=== PATIENT | male | born 1990 | race Caucasian/White ===

== ENCOUNTER 2022-08-24 15:52 | Emergency (ER) | payer OTHER, SELFPAY ==
[2022-08-24 15:58] VITALS: BP 149/61; PULSE 91; RESP 18; TEMP 36.2; O2SAT 99
--- NOTE | 2022-08-24 16:09 | ED.LOWEXIN ---
HPI - Extremity Injury (Lower) General Stated Complaint: Skin Sore Source: patient and RN notes reviewed Limitations: no limitations History of Present Illness HPI Narrative: Patient is a 32-year-old male who presents to the [facility] bilateral foot pain. Patient states that he feels as if he has a sore on the lateral aspect of the dorsal surface of bilateral feet. There is no redness or swelling. Patient states that he has to wear steel-toed boots at work on a daily basis, which may have been contributing to his pain. Sensation is intact and he denies numbness. Pulses are present. He denies known injury. He has full range of motion of bilateral feet. Related Data Allergies Allergy/AdvReac Type Severity Reaction Status Date / Time No Known Allergies Allergy Unknown Unverified 08/24/22 15:54 Review of Systems Review of Systems: CONSTITUTIONAL: Denies fever, chills, or sweats. EYES: Denies visual changes, redness, or discharge. ENT: Denies otalgia and sore throat CARDIOVASCULAR: Denies chest pain, palpitations, or edema. RESPIRATORY: Denies cough or dyspnea. GASTROINTESTINAL: Denies abdominal pain, nausea, vomiting, or diarrhea. GENITOURINARY: Denies dysuria or hematuria. SKIN: Denies rash or itching. MUSCULOSKELETAL: Denies back pain, but reports bilateral lateral foot pain. NEUROLOGIC: Denies headache, numbness, or weakness. Pertinent positives per HPI. PMFSH Comments At the time of my signature, I reviewed and agree with the nursing past medical, surgical, social, and family history. There is no relevant family history pertinent to the patient complaint. Exam Narrative: GENERAL: This is a well-nourished, well-developed patient, in no apparent distress. HEAD: normocephalic, atraumatic. EYES: Sclera clear/white. Vision is grossly intact. EARS: External ears normal, auditory canals clear and without drainage. Hearing grossly intact. NOSE: External nose normal with no obvious nasal discharge, nares without redness, no rhinorrhea. THROAT: Mucous membranes moist, posterior pharynx clear. NECK: Neck supple, non-tender without lymphadenopathy, masses or thyromegaly. CARDIOVASCULAR: Regular rate and rhythm without murmurs, gallops, or rubs. RESPIRATORY: Clear to auscultation. Breath sounds equal bilaterally. No wheezes, rales, or rhonchi. GASTROINTESTINAL: Abdomen soft, non-tender, nondistended. Bowel sounds are active. No hepato-splenomegaly, or palpable masses. No guarding. SKIN: warm, intact with no suspicious lesions or rash, good texture and turgor. NEURO: awake, alert, and oriented to person, place and time. There were no obvious focal neurologic abnormalities. EXTREMITIES: No clubbing, cyanosis, or edema. Tenderness to the lateral aspect of bilateral feet. Full range of motion intact. Sensation intact. Pulses present. No signs of injury or swelling. BACK: Nontender without deformity or crepitance. No flank tenderness. Course Course Level of Care: Express Care Visit Vital Signs Vital signs: Vital Signs Temperature 97.2 F L 08/24/22 15:58 Pulse Rate 91 08/24/22 15:58 Respiratory Rate 18 08/24/22 15:58 Blood Pressure 149/61 H 08/24/22 15:58 Pulse Oximetry 99 08/24/22 15:58 Oxygen Delivery Room Air 08/24/22 15:58 Temperature 97.2 F L 08/24/22 15:58 Pulse Rate 91 08/24/22 15:58 Respiratory Rate 18 08/24/22 15:58 Blood Pressure 149/61 H 08/24/22 15:58 Pulse Oximetry 99 08/24/22 15:58 Oxygen Delivery Room Air 08/24/22 15:58 Reviewed MDM - Extremity Injury (Lower) MDM Narrative Medical decision making narrative: Use the RICE method at home. May take ibuprofen and/or Tylenol if needed. If symptoms persist in 1 week after conservative treatment, follow-up with specialist. Differential Diagnosis Differential diagnosis: Likely fracture of toe and other (foot contusion, foot fracture) Critical Care Time Critical Care Time Critical Care Time: No Discharge Plan Dis
[2022-08-24 16:14] VITALS: BP 149/61; PULSE 91; RESP 18; TEMP 36.2; O2SAT 99
== END 2022-08-24 16:15 | disposition home or self-care (01) ==
PROVIDERS: Emergency Provider Nurse Practitioner; PCP Internal Medicine
DX: M79.672 Pain in left foot (principal); M79.671 Pain in right foot
CPT/HCPCS: 99212; G0463

== ENCOUNTER 2023-09-20 10:50 | Emergency (ER) | payer OTHER, SELFPAY ==
--- NOTE | ~2023-09-20 | CT_ITS ---
EXAMINATION: CT brain wo con DATE: 09/20/2023 11:54 INDICATION: Head injury. TECHNIQUE: Computed tomography (CT) of the head was performed without intravenous contrast. The mA wa s adjusted according to patient size. Iterative reconstruction technique was employed. The dose-lengt h product was 681.00 mGy-cm. COMPARISON: None FINDINGS: There is no intracranial hemorrhage, acute infarction, or abnormal intracranial mass lesion . The ventricles are normal in size. The paranasal sinuses are clear. The mastoid air cells are suni l. The orbits are normal. IMPRESSION: 1. Normal brain. Reviewed, dictated and finalized at location A. IMPRESSION: 1. Normal brain.
[2023-09-20 10:51] VITALS: BP 142/68; PULSE 78; RESP 18; TEMP 36.1; O2SAT 99
--- NOTE | 2023-09-20 11:43 | ED.HEATRA ---
HPI - Head Injury General Chief complaint: Head Injury Stated complaint: head injury Time Seen by Provider: 09/20/23 11:32 History of Present Illness HPI Narrative: 33-year-old male presents to the emergency department for head injury that occurred prior to arrival. Patient states he was in his garage on a wood piece fell from the ceiling and hit his head. He did not lose consciousness. He reported headache after the accident but states that has since resolved. Denies vision changes or focal numbness or weakness, denies neck pain. He presents with a laceration to scalp. Last Tdap unknown. No other injuries. Related Data Home Medications Medication Instructions Recorded Confirmed No Home Medications 08/24/22 08/24/22 Allergies Allergy/AdvReac Type Severity Reaction Status Date / Time No Known Allergies Allergy Unknown Unverified 08/24/22 15:54 Review of Systems Review of Systems: CONSTITUTIONAL: Denies fever, chills, or sweats. EYES: Denies visual changes, redness, or discharge. ENT: Denies rhinorrhea, congestion, sore throat, or otalgia. CARDIOVASCULAR: Denies chest pain, palpitations, or edema. RESPIRATORY: Denies cough or dyspnea. GASTROINTESTINAL: Denies abdominal pain, nausea, vomiting, or diarrhea. GENITOURINARY: Denies dysuria or hematuria. SKIN: See HPI MUSCULOSKELETAL: Denies back pain, joint pain, or myalgia. NEUROLOGIC: Denies headache, numbness, or weakness. PSYCHIATRIC: Denies anxiety or depression. Exam Narrative: GENERAL: Well-appearing, well-nourished, and in no acute distress. HEAD: Normocephalic, atraumatic. EYES: PERRLA and EOMI. ENT: Nares clear, no rhinorrhea or epistaxis. Mucous membranes moist. NECK: no midline cervical spinous tenderness, step-offs or deformities CHEST: Clear to auscultation. No respiratory distress. HEART: Regular rate and rhythm. No murmur heard. Normal peripheral pulses. ABDOMEN: Soft, nontender, nondistended, normal active bowel sounds. EXTREMITIES: Normal range of motion. No edema. SKIN: Y shaped laceration to the right posterior occiput put, approximately 1.5 cm wide. Bleeding controlled. No deep structures or foreign bodies visualized. No surrounding ecchymosis or hematoma NEURO: No focal deficits. Alert and oriented x3. Cranial nerves 2-12 intact. Strength 5/5 BUE and BLE. Sensation intact throughout. Course Vital Signs Vital signs: Vital Signs Temperature 97.0 F L 09/20/23 10:51 Pulse Rate 78 09/20/23 10:51 Respiratory Rate 18 09/20/23 10:51 Blood Pressure 142/68 H 09/20/23 10:51 Pulse Oximetry 99 09/20/23 10:51 Oxygen Delivery Room Air 09/20/23 10:51 Temperature 97.0 F L 09/20/23 10:51 Pulse Rate 78 09/20/23 10:51 Respiratory Rate 18 09/20/23 10:51 Blood Pressure 142/68 H 09/20/23 10:51 Pulse Oximetry 99 09/20/23 10:51 Oxygen Delivery Room Air 09/20/23 10:51 Procedures Laceration Laceration 1: Date: 09/20/23 Time: 12:29 Site: scalp Size (cm): 2 Description: irregular Depth: simple, single layer Pre-repair: wound explored and irrigated ====== Skin Level ====== Skin layer closed with: rena Size (cm): 3-0 Number of sutures: 3 Technique: simple, interrupted ====== Subcutaneous Layer ====== ====== Muscle Layer ====== ====== Tendon Layer ====== MDM - Head Injury MDM Narrative Medical decision making narrative: 33-year-old male presents to emergency department for head injury that occurred prior to arrival. See HPI for further history. Triage vital stable. Exam is significant for the above. He is neurovascularly intact. CT brain shows no acute intracranial abnormalities. Laceration irrigated extensively with normal saline and closed with rena without complications. Tdap updated. Advised patient to follow-up with his PCP and have rena removed in 7 days. Strict ED return prec
[2023-09-20] MEDS: TETANUS,DIPHTHERIA,AC PERTUSSIS ADULT (0.5 ML) BOOSTRIX IM (12:13)
[2023-09-20 12:46] VITALS: BP 143/92; PULSE 87; RESP 18; TEMP 36.8; O2SAT 100
== END 2023-09-20 12:48 | disposition home or self-care (01) ==
PROVIDERS: Emergency Provider Physician Assistant; PCP Internal Medicine
DX: S01.01XA Laceration without foreign body of scalp, initial encounter (principal); W20.8XXA Other cause of strike by thrown, projected or falling object, initial encounter; Z23 Encounter for immunization
CPT/HCPCS: 12001; 70450; 90471; 90715; 99284